=== PATIENT | male | born 1990 | race Caucasian/White ===

== ENCOUNTER 2020-02-11 13:55 | Outpatient (REF) | payer SELFPAY | END 2020-02-11 13:56 | disposition home or self-care (01) | LOC: HO.LAB 13:55 | PROVIDERS: Visit Provider Internal Medicine | DX: Z20.828 Contact with and (suspected) exposure to other viral communicable diseases (principal) | CPT/HCPCS: C9803; U0003 ==

== ENCOUNTER 2024-04-16 14:45 | Day surgery (SDC) | payer SELFPAY ==
[2024-04-16] VITALS (14 sets, daily range): BP systolic 124–149; BP diastolic 66–91; PULSE 62–112; RESP 16–18; TEMP 36.2–37.7; O2SAT 95–100; BMI 33.2; BMI 33.1
--- NOTE | ~2024-04-16 | XR_ITS ---
CLINICAL HISTORY: s p foreign body removal Left knee two views Comparison: 04/17/2023 Findings: No acute fracture or dislocation noted. No significant joint effusion identified. Previous foreign body has been removed. No residual fragment identified. Bone defect noted medial femoral condyle. Subcutaneous emphysema anterior distal thigh. Impression: No acute bony abnormality This document has been electronically signed by: Hiram Weir MD on 04/16/2024 18:29:10
--- NOTE | ~2024-04-16 | XR_ITS ---
EXAMINATION: XR KNEE, LEFT CLINICAL INFORMATION: nail in left knee COMPARISON: None available. TECHNIQUE: Three views of the left knee. FINDINGS: The tricompartment joint space is maintained normal. There is solitary radiopaque nail traversing the entire length of medial femoral condyle and appears subcortical in the joint space. No joint effusion or loose bodies seen. XR/XR knee LT 3V IMPRESSION: Long radiopaque solitary nail seen extending from the anterior skin about the patella into the medial femoral condyle. The tip appears almost subcortical in the tricompartment joint space. Electronically signed by: Ugo Helm MD 04/16/2024 04:16 PM NOAH
--- NOTE | 2024-04-16 16:11 | PM.HPOR ---
History of Present Illness History of Present Illness Date of Service: 04/16/24 Chief complaint: Injury/foreign object in L knee Narrative: Sherif Cummins is a 33 year old male seen in the ED for an injury he sustained to the left knee just prior to arrival he accidentally shot a nail into his knee with a nail gun. he has pain around the nail site and is resting in a flexed position,states he cannot straighten the leg. Review of Systems Review of Systems: Yes all other systems are reviewed and are negative Meds Allergies Allergy/AdvReac Type Severity Reaction Status Date / Time No Known Allergies Allergy Verified 04/16/24 15:16 Physical Exam Vital Signs: Vital Signs: Last Vital Signs Temp 98.6 F 04/16/24 15:06 Pulse 92 04/16/24 15:06 Resp 16 04/16/24 15:06 BP 133/80 04/16/24 15:06 Pulse Ox 97 04/16/24 15:06 O2 Del Method Room Air 04/16/24 15:06 BMI result Body Mass Index 33.2 Const: General: cooperative and no acute distress Orientation/consciousness: patient oriented x3 Resp: Effort & Inspection: normal respiratory effort and able to speak in complete sentences Cardio: Peripheral pulses: Peripheral pulses 2+ throughout Neuro: General: patient oriented x3 Extrem: Other: left knee with nail imbedded into knee no surrounding erythema knee is in flexed position NVI Results Labs Labs: All other labs normal. Diagnostic results Knee x-ray: image reviewed (left knee with industrial nail in femur , no acute fractures noted) Assessment and Plan (1) Foreign body of left knee: Status: Acute Plan Dr Felix was available to see the patient with me today We discussed with the patient at bedside the options which include removal foreign body at bedside or in the OR under local sedation. The decision was made to bring the patient to the operating room for removal of foreign body left knee. We discussed risk benefit and alternatives. Risk including but not limited to infection, inury to soft tissue and bones and need for further surgeries. Patient does express understanding and consents to proceed with removal foreign body left knee with Dr Felix. Quality Stroke Does the patient have a stroke diagnosis?: No VTE Prior VTE?: No VTE Risk Level:: Surgical - low VTE Device Contraindication: Treatment Not Indicated VTE Drug Contraindication: Treatment Not Indicated Procedures Date of Service Date of Service: 04/16/24
[2024-04-16] MEDS: Morphine Sulfate 4 MG/ML CARTRIDGE IVPUSH (16:13)
[2024-04-16] MEDS: Diphth,Pertus(ACell),Tet Adult 0.5 ML SYRINGE IM (16:14)
--- NOTE | 2024-04-16 16:14 | ED.GENADULT ---
HPI - General Adult General Chief complaint: Trauma Stated complaint: Injury/foreign object in L knee Time Seen by Provider: 04/16/24 15:48 Source: patient, RN notes reviewed and old records reviewed Mode of arrival: ambulatory History of Present Illness ED Provider: Lisa Guzman PA-C HPI narrative: 33-year-old male with no significant past medical history presenting to the ED complaining of sustaining nail to left knee s/p using nail gun at work [employer]. States nail gun went through jeans into knee. Last tetanus unknown. Denies injury to other area. Last ate at 1300 Related Data Home Medications ?Medication ?Instructions ?Recorded ?Confirmed No Known Home Meds 04/16/24 04/16/24 Allergies Allergy/AdvReac Type Severity Reaction Status Date / Time No Known Allergies Allergy Verified 04/16/24 16:29 Review of Systems Review of Systems: Yes all other systems are reviewed and are negative Constitutional: Constitutional: Reports as per [facility] Past Medical History Attestation statement: The following information was validated with the patient. Source: old records reviewed Surgical History No pertinent past surgical history Social History Social History Are you a primary group care worker to a significant other at home: No Do you presently have visiting nurse or other home services: No Patient Tobacco Use Status: Never used Tobacco Smoked in Last 30 Days: No Use of substances other than those prescribed or required for medical reasons: No Have you been hit, kicked, punched, or otherwise hurt by someone within the past year? If so, by whom?: No Are you DNR?: No Advance Directives: No Advance Directives Information Provided: No Advance Directives on File: No Recently lost weight without trying: No How much weight loss: Not applicable Eating poorly because of decreased appetite: No Nutrition screen score: 0 Nutrition Risks: No Nutritional Risk Poor oral hygiene: No Physical Exam ED Vital Signs: Vital Signs - 24 hr 04/16/24 15:06 04/16/24 16:27 04/16/24 16:36 Temperature 98.6 F 99.9 F Pulse Rate 92 86 81 Respiratory Rate 16 16 16 Blood Pressure 133/80 136/88 147/90 H Pulse Oximetry 97 100 96 Oxygen Delivery Method Room Air Room Air Room Air BMI result Body Mass Index 33.2 Const General: cooperative, healthy appearing and no acute distress Orientation/consciousness: patient oriented x3 Limitations: no limitations HENMT Head: Yes normal to inspection and Yes atraumatic Ears: hearing grossly normal bilaterally General nose exam: Normal external nose present Face and sinus: Yes normal facial exam Eyes General: appearance normal, both eyes and all related structures EOM: EOMs intact bilaterally Neck Neck: Yes normal visual inspection and Yes no meningeal signs Resp Effort & Inspection: normal respiratory effort and no respiratory distress Cardio Rate: regular rate Skin Rashes: no rashes Wounds: no wounds Neuro General: patient oriented x3, tone normal and no meningeal signs Cranial nerves: Yes CN's II-XII intact bilaterally Extrem Other: Please refer to images above. Left knee with appreciable foreign body, nail impalement. Neurovascularly intact distally. Bleeding controlled. Tender to palpation. Limited ROM. Course Course Course Narrative: XR knee LT 3V IMPRESSION: Long radiopaque solitary nail seen extending from the anterior skin about the patella into the medial femoral condyle. The tip appears almost subcortical in the tricompartment joint space. > case discussed with orthopedic AKIRA De Paz who evaluated patient in the ED with Dr. Felix. Patient will be going to OR for foreign body removal. > type and screen ordered, tetanus updated, & Ancef started Medications Administered Discontinued Medications Generic Name Dose Route Start Last Admin Trade Name Freq PRN Reason Stop Dose Admin Cefazolin Sodium 1 gm 04/16/24 16:04 04/16/24 16:20 Cefazolin Sodium 1 Gm Vial IVPUSH 04/16/24 16:05 1 gm ONCE ONE Administration Diphtheria/Tetanus/Acell Pertussis 0.5 ml 04/16/24 15:54 04/16/24 16:14 Diphth,Pertus(Acell),Tet Adult 0.5 Ml Syringe IM 04/16/24 15:55 0.5 ml .ONCE ONE Administration Morphine Sulfate 4 mg 04/16/24 15:54 04/16/24 16:13 Morphine Sulfate 4 Mg/Ml Cartridge IVPUSH 04/16/24 15:55 4 mg ONCE ONE Administration Protocol Medical Decision Making Medical Decision Making MDM Narrative: 33-year-old male with no significant past medical history presenting to the ED complaining of sustaining nail to left knee s/p using nail gun at work [employer]. On exam vital signs stable, NAD, nontoxic appearing, physical exam as noted above. Appreciable new foreign body noted to left knee. Concern for underlying fracture. No evidence of septic joint at this time Plan: XR, pain control, Orthopedic consult, update tetanus Please refer to course for remaining clinical decision making, interpretation of labs/imaging results, and discussions with consultants and/or family members. Differential Diagnosis Differential Diagnoses: The differential diagnosis associated with the presentation includes As above Admission/Observation Consideration of admission/observation: Escalation of care including admission/observation considered Consult Healthcare Provider Management of the patient was discussed with: Hand Hardener (Orthopedics) Lab Data MDM Lab Attestation statement: I reviewed the patient's lab results. 04/16/24 16:12 04/16/24 16:12 Labs: Lab Results 04/16/24 04/16/24 Range/Units 16:12 16:14 WBC 12.1 H (4.8-10.8) X10*3/uL RBC 4.74 (4.60-5.80) X10*6/uL Hgb 15.2 (14.0-18.0) g/dl Hct 40.5 L (42.0-52.0) % MCV 85.4 (80.0-98.0) fL MCH 32.1 (27.0-33.0) pg MCHC 37.5 H (31.0-36.0) g/dl RDW 11.9 (11.0-16.0) % Plt Count 276 (160-400) X10*3/uL MPV 10.0 (9.4-12.4) fL Immature Gran % (Auto) 0.4 (0.0-0.4) % Neut % (Auto) 78.3 H (45-73) % Lymph % (Auto) 15.8 L (20-40) % [place] % (Auto) 5.1 (2-11) % Eos % (Auto) 0.2 (0-4) % Baso % (Auto) 0.2 (0-2) % Lymph # (Auto) 1.9 (1.2-4.9) X10*3/uL [place] # (Auto) 0.6 (0.1-1.2) X10*3/uL Eos # (Auto) 0.0 (0.0-0.4) X10*3/uL Baso # (Auto) 0.0 (0.0-0.2) X10*3/uL Abs Immat Gran (auto) 0.05 H (0.00-0.03) X10*3/uL Absolute Neuts (auto) 9.5 H (2.0-8.3) x10*3/uL Absolute Nucleated RBC 0.000 (0.0-0.012) X10*3/uL Nucleated RBC % (auto) 0.0 (0.0-0.2) /100WBC PT 11.3 (10.9-12.4) SEC INR 1.0 (0.9-1.1) Sodium 142 (135-145) mmol/L Potassium 3.5 (3.3-5.1) mmol/L Chloride 107 (96-108) mmol/L Carbon Dioxide 26 (22-29) mmol/L Anion Gap 13 (12-20) BUN 14 (9-16) mg/dL Creatinine 0.73 (0.5-1.4) mg/dL Estim Creat Clear Calc 159.0 Estimated GFR > 60 Random Glucose 113 (60-115) mg/dL Calcium 9.9 (8.4-10.2) mg/dL Blood Type B Positive Antibody Screen NEGATIVE Independent Interpretation I performed an independent interpretation of an: Plain X-Ray Radiology Impression Discussion of test interpretation with radiology: I have reviewed the radiologist's reading. External Record Review External record reviewed: Inpatient record, Office record, Outpatient record, Prior outpatient labs, Prior outpatient radiology, Primary care record and Outside ED record Tests considered The following testing was considered but not selected: As above Prescription Management I considered prescription management with: Pain Medication Chronic Conditions Patient?s care impacted by: Other Social Determinants Patient?s care significantly limited by Social Determinants of Health including: Other Social Determinant of Health Discharge Plan Discharge Clinical Impression: Foreign body of left knee Patient Disposition: Xfer Other Transfer Details: ED to Surgery Prescriptions: No Action No Known Home Meds Print Language: Estonian
[2024-04-16 16:20] LABS: MANUAL DIFF FLAG NO
[2024-04-16] MEDS: ceFAZolin Sodium 1 GM VIAL IVPUSH (16:20)
--- NOTE | 2024-04-16 16:24 | PC.NURSE ---
RN to RN phone report given to SSS, all questions answered, patient transferred over to OR by transport Jose Guadalupe.
[2024-04-16 16:26] LABS: Basophils Percent Auto 0.2 % (0-2); Eosinophils Percent Auto 0.2 % (0-4); Hematocrit 40.5 % (42.0-52.0); Hemoglobin 15.2 g/dl (14.0-18.0); Imm Gran Abs Auto 0.05 X10*3/uL (0.00-0.03); Imm Gran Pct Auto 0.4 % (0.0-0.4); Lymphocytes Absolute Auto 1.9 X10*3/uL (1.2-4.9); Lymphocytes Percent Auto 15.8 % (20-40); Mean Corpuscular HGB Conc 37.5 g/dl (31.0-36.0); Mean Corpuscular Hemoglobin 32.1 pg (27.0-33.0); Mean Corpuscular Volume 85.4 fL (80.0-98.0); Monocytes Absolute Auto 0.6 X10*3/uL (0.1-1.2); Monocytes Percent Auto 5.1 % (2-11); Neutrophils Absolute Auto 9.5 x10*3/uL (2.0-8.3); Neutrophils Percent Auto 78.3 % (45-73); Platelet Count 276 X10*3/uL (160-400); Red Blood Count 4.74 X10*6/uL (4.60-5.80); Red Cell Distribution Width 11.9 % (11.0-16.0); White Blood Count 12.1 X10*3/uL (4.8-10.8)
[2024-04-16 16:30] LABS: Prothrombin Time 11.3 SEC (10.9-12.4)
[2024-04-16 16:35] LABS: Anion Gap 13 (12-20); Blood Urea Nitrogen 14 mg/dL (9-16); Calcium 9.9 mg/dL (8.4-10.2); Carbon Dioxide 26 mmol/L (22-29); Chloride 107 mmol/L (96-108); Estimated Glomerular Filt Rate > 60; Glucose Random 113 mg/dL (60-115); Potassium 3.5 mmol/L (3.3-5.1); Sodium 142 mmol/L (135-145)
--- NOTE | 2024-04-16 16:45 | HO.ANESPROP2 ---
HPI - Anesthesia Eval Consult details Narrative: 33M w/ nailgun to the left femur/knee. Last ate at 1pm. Procedure emergent per ortho surgeon; cannot wait for NPO time. Patient understands risk of aspiration and amenable to proceed. PMFSH Active Problems Active Problems: All Active Problems Foreign body of left knee (Acute) Family History Family history of problems with anesthesia: No Surgical History Surgical History No pertinent past surgical history History of Problems with Anesthesia: No Social History Social History Are you a primary home care manager rn to a significant other at home: No Do you presently have visiting nurse or other home services: No Patient Tobacco Use Status: Never used Tobacco Smoked in Last 30 Days: No Use of substances other than those prescribed or required for medical reasons: No Have you been hit, kicked, punched, or otherwise hurt by someone within the past year? If so, by whom?: No Are you DNR?: No Advance Directives: No Advance Directives Information Provided: No Advance Directives on File: No Recently lost weight without trying: No How much weight loss: Not applicable Eating poorly because of decreased appetite: No Nutrition screen score: 0 Nutrition Risks: No Nutritional Risk Poor oral hygiene: No Meds Allergies Allergy/AdvReac Type Severity Reaction Status Date / Time No Known Allergies Allergy Verified 04/16/24 16:29 Exam Height,Weight and Vital Signs: Height 5 ft 7 in Weight 212 lb Last Vital Signs Temp 99.9 F 04/16/24 16:36 Pulse 81 04/16/24 16:36 Resp 16 04/16/24 16:36 BP 147/90 H 04/16/24 16:36 Pulse Ox 96 04/16/24 16:36 O2 Del Method Room Air 04/16/24 16:36 Pertinent Lab Results Pertinent Lab Results: Laboratory Tests 04/16/24 16:12 WBC 12.1 H RBC 4.74 Hgb 15.2 Hct 40.5 L MCV 85.4 MCH 32.1 MCHC 37.5 H RDW 11.9 Plt Count 276 MPV 10.0 Immature Gran % (Auto) 0.4 Neut % (Auto) 78.3 H Lymph % (Auto) 15.8 L [place] % (Auto) 5.1 Eos % (Auto) 0.2 Baso % (Auto) 0.2 Lymph # (Auto) 1.9 [place] # (Auto) 0.6 Eos # (Auto) 0.0 Baso # (Auto) 0.0 Abs Immat Gran (auto) 0.05 H Absolute Neuts (auto) 9.5 H Absolute Nucleated RBC 0.000 Nucleated RBC % (auto) 0.0 PT 11.3 INR 1.0 Sodium 142 Potassium 3.5 Chloride 107 Carbon Dioxide 26 Anion Gap 13 BUN 14 Creatinine 0.73 Estim Creat Clear Calc 159.0 Estimated GFR > 60 Random Glucose 113 Calcium 9.9 Airway Loose/Missing/Broken Teeth: Yes and No Assessment and Plan Assessment Anesthesia Assessment: Anesthesia Plan Discussed and Chart Reviewed Final Anesthetic Review Family History of Problems with Anesthesia: No History of Problems with Anesthesia: No NPO: No (emergent procedure) ASA Class: II and Emergency Final Preanesthetic Review: No Changes in Pt Med Stat, Meds/Allgs Chart Reviewed, Consent Obtained/Reviewed and Anes Risks/Benef Reviewed Patient Risk: Low Procedure Risk: Low Anesthetic Plan Anesthetic Plan: GA Disposition: Standard PACU
--- NOTE | 2024-04-16 17:30 | PM.OP ---
Brief Operative Note Date of Service: 04/16/24 Pre-op diagnosis: Foreign body left knee Post-op diagnosis: same Procedure: Removal of foreign body arthrotomy with irrigation left knee Surgeon: Ludin Felix MD Anesthesia: GETA and local Was an Clinical Cytogeneticist used for this Procedure?: Yes Clinical Cytogeneticist: Paulie Rowell Estimated blood loss (mL): 20 IV fluids (mL): 500 Pathology: none sent Condition: stable Disposition: PACU
[2024-04-16] MEDS: Acetaminophen 1,000 MG/100 ML PIGGYBACK 400 MG IV (18:04)
--- NOTE | 2024-04-16 18:57 | PHA.MEDREC ---
Pharmacy Consult ? Medication Reconciliation Pharmacy reviewed med rec done by nursing. No Known Home Meds confirmed, claims match.
[2024-04-16] MEDS: Acetaminophen 325 MG TABLET 650 MG PO (23:16)
[2024-04-16] MEDS: ceFAZolin Sodium/Dextrose,Iso 2 GM/50 ML PIGGYBACK IV (23:17)
[2024-04-17] MEDS: Acetaminophen 325 MG TABLET 650 MG PO (05:00)
[2024-04-17 07:02] VITALS: BP 128/68; PULSE 65; RESP 14; TEMP 36.7; O2SAT 96
--- NOTE | 2024-04-17 07:33 | P.DS_ITS ---
DS: Providers Provider Date of Service: 04/17/24 Date of discharge: 04/17/24 Primary care physician: Daniel Physician DS: Diagnosis Discharge Diagnosis (1) Foreign body of left knee: Status: Acute DS: Summary Hospital Course Hospital Course: The patient underwent a successful removal of foreign body left knee they were transferred to PACU and then to the floor to recover. During their stay, their vitals were stable, afebrile at 98.1. Prior to discharge, their packing was pulled at bedside and a new dressing was placed. The plan was to be discharged home with out patient followup. Time Attestation Discharge Coordination Time (in mins): 30 Quality: Safe Use of Opioids Does Pt have an Active Cancer Diagnosis on the Problem List?: No Quality: Stroke Does the patient have a stroke diagnosis?: No Physical Exam Vital Signs: Vital Signs: Last Vital Signs Temp 98.1 F 04/17/24 07:02 Pulse 65 04/17/24 07:02 Resp 14 04/17/24 07:02 BP 128/68 04/17/24 07:02 Pulse Ox 96 04/17/24 07:02 O2 Del Method Room Air 04/17/24 07:02 O2 Flow Rate 2 04/16/24 17:50 BMI result Body Mass Index 33.1 Const: General: cooperative, healthy appearing and no acute distress Resp: Effort & Inspection: normal respiratory effort and able to speak in complete sentences Cardio: Rate: regular rate Peripheral pulses: Peripheral pulses 2+ throughout GI: Palpation (GI): Soft to palpation Skin: Lesions: no lesions Rashes: no rashes Extrem: Other: left knee packing pulled at bedside and dressing applied. Able to dorsi/plantar flex. Calf is supple and nontender. Sensation intact. Pedal pulse intact. DS: Data Data Completed and Pending Labs on day of discharge: Laboratory Results - last 24 hr 04/16/24 04/16/24 16:12 16:14 WBC 12.1 H RBC 4.74 Hgb 15.2 Hct 40.5 L MCV 85.4 MCH 32.1 MCHC 37.5 H RDW 11.9 Plt Count 276 MPV 10.0 Immature Gran % (Auto) 0.4 Neut % (Auto) 78.3 H Lymph % (Auto) 15.8 L [place] % (Auto) 5.1 Eos % (Auto) 0.2 Baso % (Auto) 0.2 Lymph # (Auto) 1.9 [place] # (Auto) 0.6 Eos # (Auto) 0.0 Baso # (Auto) 0.0 Abs Immat Gran (auto) 0.05 H Absolute Neuts (auto) 9.5 H Absolute Nucleated RBC 0.000 Nucleated RBC % (auto) 0.0 PT 11.3 INR 1.0 Sodium 142 Potassium 3.5 Chloride 107 Carbon Dioxide 26 Anion Gap 13 BUN 14 Creatinine 0.73 Estim Creat Clear Calc 159.0 Estimated GFR > 60 Random Glucose 113 Calcium 9.9 Blood Type B Positive Antibody Screen NEGATIVE Discharge Plan Discharge Patient Disposition: Home, Self-Care Referrals: Paulie Rowell PA-C [Physician Attic Fans Mechanic] - 1 Week Physician,None [Primary Care Provider] - 1 Week Discharge Medications: New acetaminophen 325 mg Tablet 650 mg PO Q6H 30 Days Qty: 240 0RF oxycodone 5 mg Tablet 5 mg PO Q6H PRN (Reason: Pain, Moderate(Pain Scale 4-6)) 7 Days Qty: 28 0RF Rx Instructions: Partial Fill upon patient request. Discharge Orders: Discharge Order (Routine); Ordered 04/17/24 Ordered By: Marie Saldana Diet: Advance to usual diet Activity on Discharge: As tolerated Activity Restrictions/Additional Instructions: LLE WBAT Sutures to remain in place until f/;u f/u with oprthopedics in 1 week continue abx x 10 days Print Language: Tunisian
[2024-04-17] MEDS: ceFAZolin Sodium/Dextrose,Iso 2 GM/50 ML PIGGYBACK IV (07:46)
[2024-04-17] MEDS: oxyCODONE HCl Immed Release 5 MG TABLET PO (07:46)
--- NOTE | 2024-04-17 08:55 | MHC.CM.PN ---
CM MET WITH PT AT BEDSIDE. PT LIVES WITH FAMILY AND IS FUNCTIONALLY INDEPENDENT. NO SERVICES/DME. + HCP PT HAS NO PCP, [facility] PROVIDED. DP: PT HAS BEEN MEDICALLY CLEARED FOR DC HOME, NO SERVICES. PT HAS OWN RIDE HOME.
--- NOTE | 2024-04-17 10:32 | HO.POSTANES ---
Post Anesthesia Evaluation Post Anesthesia Evaluation Date of Service: 04/17/24 Vital Signs: Vital Signs Temp Pulse Resp BP Pulse Ox O2 Del Method 04/17/24 07:02 98.1 F 65 14 128/68 96 Room Air 04/16/24 23:23 98.1 F 62 18 126/66 96 Room Air Anesthesia: Monitored Mental Status: Awake Pain Control: Satisfactory Nausea/Vomiting: None Hydration: Adequate Anesthesia-Related Issues: No Anes. Related Issues
--- NOTE | 2024-04-28 14:42 | P.OP_ITS ---
Operative Note Operative Note Date of Service: 04/16/24 Narrative: Date of Service: 04/16/24 Pre-op diagnosis: Foreign body left knee Post-op diagnosis: same Procedure: Removal of foreign body arthrotomy with irrigation left knee Surgeon: Ludin Felix MD Anesthesia: GETA and local Was an Steam Crane Operator used for this Procedure?: Yes Steam Crane Operator: Paulie Rowell Estimated blood loss (mL): 20 IV fluids (mL): 500 Pathology: none sent Condition: stable Disposition: PACU Patient was brought to the operating room and placed supine on the surgical table. A time out was called to identify proper site, proper procedure and IV antibiotics per weight were administered. I began by trying to pull the nail out with the attached portion of pain but this was not possible. I ten elected to remove the cloth material from around the nail head. The nail was embedded in the distal femur just proximal to the patella. I prepped the area and then made n incision ( 1 cm ) around the nail head. I then grasped with a headed nail remover and pulled the nail out manually. There was minimal bleeding. I then injected the knee joint with 60 ml saline and there was extravasation through the incision. Therefore I extended the incision and dissected down to the MFC. A small artyhrotomy was made with a 15 blade. I irrigated the knee with 9 L of saline via sulse lavage. I then left packing in the wound and closed loosely around the packing. post operative radigraphs were unremakable and patient was placed in sterile dressing and then extubated and brought top the recovery room in stable condition.
== END 2024-04-17 09:58 | disposition home or self-care (01) ==
LOC: HO.S3 21:16 → HO.ED 21:32 → HO.SSS 22:15 → HO.S3 22:29
PROVIDERS: Physician Assistant; Emergency Provider Emergency Medicine; Visit Provider Orthopaedic Surgery
PROC: (CPT 27310; principal; 2024-04-16 17:40)
DX: S81.042A Puncture wound with foreign body, left knee, initial encounter (principal); W29.4XXA Contact with nail gun, initial encounter; Y93.89 Activity, other specified; Y92.9 Unspecified place or not applicable; Y99.0 Civilian activity done for income or pay; Z23 Encounter for immunization
CPT/HCPCS: 27310; 36415; 73560; 73562; 80048; 85025; 85610; 86850; 86900; 86901; 87040; 90471; 90715; 96365; 96375; 99281; 99285; J0131; J0330; J0690; J1171; J1885; J2003; J2250; J2270; J2405; J2704; J2795; J3010

== ENCOUNTER → 2024-04-16 15:15 | Outpatient (BNV) | payer SELFPAY | PROVIDERS: Emergency Provider Emergency Medicine; Visit Provider Radiology Diagnostic Radiology | DX: S80.252A Superficial foreign body, left knee, initial encounter (principal) | CPT/HCPCS: 73560; 73562 ==

== ENCOUNTER → 2024-04-16 17:40 | Outpatient (BNV) | payer SELFPAY | PROVIDERS: Visit Provider Physician Assistant | DX: S80.252A Superficial foreign body, left knee, initial encounter (principal) | CPT/HCPCS: 99024 ==

== ENCOUNTER 2024-04-25 10:35 | Outpatient (AMB) | payer SELFPAY ==
--- NOTE | 2024-04-25 10:38 | MHC.OFFVIS ---
Vital Signs 04/25/24 10:39 Height 5 ft 7 in Weight 211 lb BMI 33.0 Intake Visit Reasons: PO L knee removal of foreign body DOS 04/15/24 NE Intake Note: Sherif is a 33 year old male who presents today for his first post operative appointment about 1 week s/p Left Knee ROFB with Dr. Felix 04/17/2023. While at work patient reports using a nail gun when a nail accidentally fired into his left knee through his jeans. He was [place] [facility] and brought to the OR for ROFB. Patient reports that he is improving but is having some mild pain causing him to limp. Wildland Fire Fighter Required: Yes Wildland Fire Fighter Language: Client Services Associate Name: César Morataya [phone] Allergies No Known Allergies Allergy (Verified 04/16/24 16:29) HPI HPI PO L knee removal of foreign body DOS 04/15/24 NE: Details: 33 yo male presents to the office today s/p Lt knee removal foreign body 04/15/24 with NE. He c/o mild pain around incision site. He has some pain with flexion. [facility] Surgical History No pertinent past surgical history Social History Household Members: Spouse Housing: Apartment Are you a primary youth care worker to a significant other at home: No Do you presently have visiting nurse or other home services: No Patient Tobacco Use Status: Never used Tobacco service: No Review of Systems Const All systems reviewed & are unremarkable except as noted in HPI and below Physical Exam Vital Signs: BMI result Body Mass Index 33.0 Extrem Other: Left knee incision clean dry and intact no erythema no joint effusion. He has full range of motion 0-90 degrees calf supple and nontender neurovascularly intact. Assessment & Plan Assessment & Plan (1) Foreign body of left knee: Code(s): S80.252A - Superficial foreign body, left knee, initial encounter Category: Medical Plan: Sutures removed today Steri-Strips applied. I did offer physical therapy to work on range of motion and strengthening exercises which she declined at this time stating he is doing well on his own. He will remain out of work for the next 2 weeks at which point he will return full duty with no limitations. He will see me back as needed if symptoms arise. Coding Level of Care Code Global (11950) Diagnoses Foreign body of left knee S80.252A
[2024-04-25 10:39] VITALS: BMI 33.0
== END 2024-04-25 10:52 | disposition home or self-care (01) ==
LOC: HO.HOS 10:36
PROVIDERS: Visit Provider Physician Assistant
DX: S80.252A Superficial foreign body, left knee, initial encounter (principal)
CPT/HCPCS: 99024

== ENCOUNTER → 2024-04-25 10:35 | Outpatient (BNVA) | payer SELFPAY | PROVIDERS: Visit Provider Physician Assistant | DX: S80.252D Superficial foreign body, left knee, subsequent encounter (principal); X58.XXXD Exposure to other specified factors, subsequent encounter; Z98.890 Other specified postprocedural states | CPT/HCPCS: 99212 ==